=== PATIENT | female | born 2000 | race African-American/Black ===

== ENCOUNTER 2023-03-13 08:28 | Emergency (ER) | payer MEDICARE, MEDICAID ==
[~2023-03-13] VITALS: Ht 165.1 cm; Wt 104.0 kg
[2023-03-13 08:40] VITALS: BP 138/87
== END 2023-03-13 09:00 | disposition left against medical advice (07) ==
LOC: ER 08:28
DX: Z53.21 Procedure and treatment not carried out due to patient leaving prior to being seen by health care provider (principal)
CPT/HCPCS: 99281